=== PATIENT | male | born 1960 | race African-American/Black ===

== ENCOUNTER 2017-09-28 09:31 | Emergency (ER) | payer MEDICAID ==
[~2017-09-28] VITALS: Ht 190.5 cm; Wt 81.8 kg
[2017-09-28] MEDS ORDERED: CEPH500 PO (10:10)
[2017-09-28 10:26] VITALS: BP 145/91
== END 2017-09-28 11:38 | disposition home or self-care (01) ==
LOC: EMS 09:32
DX: S00.83XA Contusion of other part of head, initial encounter (principal); H11.31 Conjunctival hemorrhage, right eye; I10 Essential (primary) hypertension; F17.200 Nicotine dependence, unspecified, uncomplicated; Z48.00 Encounter for change or removal of nonsurgical wound dressing; Z88.0 Allergy status to penicillin; V09.9XXA Pedestrian injured in unspecified transport accident, initial encounter; Y93.01 Activity, walking, marching and hiking; Y92.89 Other specified places as the place of occurrence of the external cause; Y99.8 Other external cause status
CPT/HCPCS: 99283

== ENCOUNTER 2017-09-29 10:14 | Emergency (ER) | payer MEDICAID ==
[~2017-09-29] VITALS: Ht 190.5 cm; Wt 82.5 kg
[~2017-09-29 10:14] MED LIST: CEPH500 PO
[2017-09-29 11:01] VITALS: BP 118/72
== END 2017-09-29 11:02 | disposition home or self-care (01) ==
LOC: EMS 10:16
DX: S00.83XA Contusion of other part of head, initial encounter (principal); H11.31 Conjunctival hemorrhage, right eye; F17.200 Nicotine dependence, unspecified, uncomplicated; I10 Essential (primary) hypertension; Z48.00 Encounter for change or removal of nonsurgical wound dressing; Z88.0 Allergy status to penicillin; V03.99XA Pedestrian with other conveyance injured in collision with car, pick-up truck or van, unspecified whether traffic or nontraffic accident, initial encounter; Y93.89 Activity, other specified; Y92.89 Other specified places as the place of occurrence of the external cause; Y99.8 Other external cause status
CPT/HCPCS: 99283

== ENCOUNTER 2017-10-03 16:03 | Emergency (ER) | payer MEDICAID ==
[~2017-10-03] VITALS: Ht 190.5 cm; Wt 82.0 kg
[2017-10-03 16:51] VITALS: BP 110/65
== END 2017-10-03 17:21 | disposition home or self-care (01) ==
LOC: EMS 16:17
DX: Z48.02 Encounter for removal of sutures (principal); I10 Essential (primary) hypertension; Z88.0 Allergy status to penicillin
CPT/HCPCS: 99283

== ENCOUNTER 2017-11-09 21:01 | Emergency (ER) | payer MEDICAID ==
[~2017-11-09] VITALS: Ht 188 cm; Wt 81.8 kg
[2017-11-09 21:52] VITALS: BP 144/96
[2017-11-09] MEDS ORDERED: IBUPROFEN 400 MG TABLET PO ONE (22:00)
[2017-11-09] MEDS ORDERED: ACETAMINOPHEN 325 MG TABLET PO ONE (22:00)
== END 2017-11-09 21:53 | disposition home or self-care (01) ==
LOC: EMS 21:03
DX: L84 Corns and callosities (principal); I10 Essential (primary) hypertension; F17.200 Nicotine dependence, unspecified, uncomplicated; Z88.0 Allergy status to penicillin; Z98.890 Other specified postprocedural states
CPT/HCPCS: 99283

== ENCOUNTER 2018-11-24 08:51 | Emergency (ER) | payer MEDICAID, OTHER ==
[~2018-11-24] VITALS: Ht 190.5 cm; Wt 83.2 kg
[2018-11-24 09:29] VITALS: BP 141/84
== END 2018-11-24 10:22 | disposition home or self-care (01) ==
LOC: EMS 08:51
DX: J32.9 Chronic sinusitis, unspecified (principal); I10 Essential (primary) hypertension; F17.200 Nicotine dependence, unspecified, uncomplicated; Z88.0 Allergy status to penicillin

== ENCOUNTER 2018-11-27 22:11 | Emergency (ER) | payer OTHER ==
[~2018-11-27] VITALS: Ht 190.5 cm; Wt 83.2 kg
[2018-11-28 00:15] VITALS: BP 127/76
[2018-11-28] MEDS ORDERED: IBUPROFEN 600 MG TABLET PO ONE (00:30)
== END 2018-11-28 00:35 | disposition home or self-care (01) ==
LOC: EMS 22:11
DX: S40.011A Contusion of right shoulder, initial encounter (principal); F10.129 Alcohol abuse with intoxication, unspecified; I10 Essential (primary) hypertension; Z59.0 Homelessness; Z88.0 Allergy status to penicillin; Y90.9 Presence of alcohol in blood, level not specified; V03.90XA Pedestrian on foot injured in collision with car, pick-up truck or van, unspecified whether traffic or nontraffic accident, initial encounter; Y93.01 Activity, walking, marching and hiking; Y92.89 Other specified places as the place of occurrence of the external cause; Y99.8 Other external cause status

== ENCOUNTER 2019-08-07 15:26 | Emergency (ER) | payer OTHER ==
[~2019-08-07] VITALS: Ht 190.5 cm; Wt 81.8 kg
[2019-08-07 16:00] VITALS: BP 138/90
== END 2019-08-07 16:15 | disposition home or self-care (01) ==
LOC: EMS 15:27
DX: R53.83 Other fatigue (principal); I10 Essential (primary) hypertension; Z98.890 Other specified postprocedural states; Z88.0 Allergy status to penicillin

== ENCOUNTER 2019-09-30 00:14 | Emergency (ER) | payer OTHER | END 2019-09-30 00:24 | disposition left against medical advice (07) | LOC: EMS 00:14 | DX: Z53.21 Procedure and treatment not carried out due to patient leaving prior to being seen by health care provider (principal) ==

== ENCOUNTER 2019-10-15 15:35 | Emergency (ER) | payer OTHER ==
[~2019-10-15] VITALS: Ht 190.5 cm; Wt 84.0 kg
[2019-10-15] MEDS ORDERED: TraMADol HCL 50 MG TABLET PO ONE (17:00)
[2019-10-15 18:30] VITALS: BP 126/82
== END 2019-10-15 18:38 | disposition home or self-care (01) ==
LOC: EMS 15:35
DX: S40.012A Contusion of left shoulder, initial encounter (principal); Z88.0 Allergy status to penicillin; W01.0XXA Fall on same level from slipping, tripping and stumbling without subsequent striking against object, initial encounter; Y93.89 Activity, other specified; Y92.89 Other specified places as the place of occurrence of the external cause; Y99.8 Other external cause status

== ENCOUNTER 2019-12-30 00:24 | Emergency (ER) | payer OTHER ==
[~2019-12-30] VITALS: Ht 190.5 cm; Wt 81.8 kg
[2019-12-30 00:55] LABS: GLUCOSE,POINT OF CARE 120 MG/DL (70-110)
[2019-12-30 01:38] LABS: BASOPHILS % (AUTO) 1.1 % (0.0-2.0); HEMATOCRIT 39.7 % (41-53); LYMPHOCYTES # (AUTO) 1.2 K/uL (1.0-4.8); LYMPHOCYTES % (AUTO) 30.7 % (22.0-44.0); MEAN CORPUSCULAR HEMOGLOBIN 33.9 pg (26.0-34.0); MEAN CORPUSCULAR HGB CONC 32.8 G/dL (31.0-37.0); MEAN CORPUSCULAR VOLUME 103 fL (80-100); MONOCYTES # (AUTO) 0.7 K/uL (0.1-1.0); MONOCYTES % (AUTO) 18.3 % (2.0-9.0); NEUTROPHILS # (AUTO) 1.9 K/uL (1.8-7.7); NEUTROPHILS % (AUTO) 48.9 % (40.0-70.0); PLATELET COUNT (AUTO) 156 K/uL (150-450); RED BLOOD CELL COUNT(AUTO) 3.84 MIL/uL (4.50-5.90); RED CELL DISTRIBUTION WIDTH 15.4 % (11.5-14.5)
[2019-12-30 02:06] LABS: ANION GAP 10 mmol/L (8-16); CALCIUM, TOTAL 8.6 mg/dL (8.8-10.5); CARBON DIOXIDE 25 mmol/L (22-29); CHLORIDE 105 mmol/L (98-107); CREATININE 1.03 mg/dL (0.60-1.30); GLOMERULAR FILTR. RATE CALC > 60 mL/min (>60); GLUCOSE,RANDOM 109 mg/dL (70-110); POTASSIUM 3.7 mmol/L (3.5-5.1); SODIUM SERUM 140 mmol/L (136-145); UREA NITROGEN, BLOOD 11 mg/dL (7-18)
[2019-12-30 02:12] LABS: ALANINE AMINOTRANSFERASE 33 U/L (12-78); ALBUMIN 3.8 g/dL (3.4-5.0); ALKALINE PHOSPHATASE 68 U/L (46-116); ASPARTATE AMINOTRANSFERASE 34 U/L (15-37); BILIRUBIN,TOTAL 0.2 mg/dL (0.1-1.0); TOTAL PROTEIN, SERUM 8.6 g/dL (6.4-8.2)
[2019-12-30 04:30] VITALS: BP 124/75
== END 2019-12-30 05:17 | disposition home or self-care (01) ==
LOC: EMS 00:25
DX: R07.9 Chest pain, unspecified (principal); I10 Essential (primary) hypertension; F17.210 Nicotine dependence, cigarettes, uncomplicated; F19.90 Other psychoactive substance use, unspecified, uncomplicated; Z88.0 Allergy status to penicillin
CPT/HCPCS: 93005